=== PATIENT | male | born 1955 ===

== ENCOUNTER 2016-07-16 09:50 | Day surgery (SDC) | payer OTHER ==
[~2016-07-16 09:50] MED LIST: LIDOCAINE HCL 1% MPF SOL ONE; PROPOFOL 500 MG/50 ML EMU IV ONE
[2016-07-16 12:08] VITALS: O2SAT 98
[2016-07-16 12:19] VITALS: BP 147/75; PULSE 72; RESP 18; TEMP 96.6
== END 2016-07-16 12:39 | disposition home or self-care (01) ==
LOC: SURG 09:50
PROVIDERS: ATTEND Surgery
DX: Z12.11 Encounter for screening for malignant neoplasm of colon (principal); D12.0 Benign neoplasm of cecum
CPT/HCPCS: 45385; 82962; 88305; J2001; J2704

== ENCOUNTER 2016-11-21 19:58 | Emergency (ER) | payer OTHER ==
[2016-11-21] MEDS: CEFTRIAXONE 1 GM PDS 1 GM in SODIUM CHLORIDE 0.9% 100 ML 100 ML IV ONE ×2 (20:47→21:21)
[2016-11-21] MEDS ORDERED: SODIUM CHLORIDE 0.9% 1000ML 1,000 ML IV ONE (20:48)
[2016-11-21 20:52] VITALS: RESP 16
[2016-11-21] MEDS ORDERED: SODIUM CHLORIDE 0.9% FLUSH 10 ML SOL IV PRN (20:54)
[2016-11-21] MEDS ORDERED: CEFTRIAXONE 1 GM (PREMIX) 1 GM/50 ML SOL IV ONE ×2 (20:58)
[2016-11-21 21:23] LABS: BASOPHILS % (AUTO) 1 % (0-3); EOSINOPHILS % (AUTO) 1 % (0-9); HEMATOCRIT 35 % (39-53); MEAN CORPUSCULAR HGB CONC 33.5 gm/dl (32.0-36.0); MEAN CORPUSCULAR VOLUME 89 fL (80-100); MONOCYTES % (AUTO) 8.9 % (0-12); NEUTROPHILS % (AUTO) 70.8 % (37-80)
[2016-11-21 21:34] LABS: ALBUMIN 2.4 gm/dl (3.4-5.0); CALCIUM 8.2 mg/dl (8.5-10.1); POTASSIUM 4.1 mMol/L (3.5-5.1)
[2016-11-21 21:36] VITALS: O2SAT 98
[2016-11-21] MEDS ORDERED: SOLUMEDROL 125 MG/2 ML 125 MG/2 ML PDS IV ONE (21:57)
[2016-11-21] MEDS ORDERED: ACETAMINOPHEN 500 MG 500 MG TAB PO ONE (22:22)
[2016-11-21] MEDS ORDERED: ACETAMINOPHEN 500 MG 500 MG TAB ONE (22:23)
[2016-11-21] MEDS ORDERED: SOLUMEDROL 125 MG/2 ML 125 MG/2 ML PDS ONE (22:56)
[2016-11-22 00:47] VITALS: BP 136/79; PULSE 74; TEMP 99.9
== END 2016-11-21 23:41 | disposition home or self-care (01) ==
LOC: ED 19:58
DX: K04.7 Periapical abscess without sinus (principal); J01.00 Acute maxillary sinusitis, unspecified; E86.0 Dehydration
CPT/HCPCS: 99285 ×3; 82962; 85025; 86140; J0696; J2930; 80053

== ENCOUNTER 2018-02-01 11:02 | Day surgery (SDC) | payer OTHER ==
[~2018-02-01 11:02] MED LIST changes: +LIDOCAINE HCL 1% MPF 30 SOL ONE; -LIDOCAINE HCL 1% MPF SOL ONE; -PROPOFOL 500 MG/50 ML EMU IV ONE
[2018-02-01] MEDS ORDERED: MIDAZOLAM 2 MG/2 ML SOL ONE (12:09)
[2018-02-01] MEDS ORDERED: FENTANYL 100MCG/2ML SOL ONE (12:09)
[2018-02-01] MEDS ORDERED: PROPOFOL 500 MG/50 ML EMU IV ONE (12:09)
[2018-02-01 13:47] VITALS: PULSE 56
[2018-02-01 14:22] VITALS: RESP 20; TEMP 96.1; O2SAT 100
[2018-02-01 15:08] VITALS: BP 171/75
== END 2018-02-01 15:45 | disposition home or self-care (01) ==
LOC: SURG 11:02
PROVIDERS: ATTEND Orthopaedic Surgery
DX: G56.21 Lesion of ulnar nerve, right upper limb (principal); G56.01 Carpal tunnel syndrome, right upper limb; E11.9 Type 2 diabetes mellitus without complications
CPT/HCPCS: 82962; J2250; J3010; A6402; J2001; J2704

== ENCOUNTER 2018-04-20 11:33 | Emergency (ER) | payer OTHER ==
[2018-04-20] MEDS ORDERED: ONDANSETRON HCL 4 MG/2 ML SOL ONE (11:51)
[2018-04-20] MEDS ORDERED: ONDANSETRON HCL 4 MG/2 ML SOL IV ONE (11:52)
[2018-04-20] MEDS: SODIUM CHLORIDE 0.9% FLUSH 10 ML SOL IV PRN ×3 (11:54→12:21)
[2018-04-20] MEDS ORDERED: PANTOPRAZOLE SODIUM 40 MG/10 ML PDS IV ONE (12:04)
[2018-04-20] MEDS ORDERED: PROCHLORPERAZINE EDISYLATE 5 MG/ML SOL IV PRN (12:09)
[2018-04-20] MEDS ORDERED: SODIUM CHLORIDE 0.9% 1000ML 1,000 ML IV ONE (12:09)
[2018-04-20] MEDS ORDERED: PANTOPRAZOLE SODIUM 40 MG/10 ML PDS ONE (12:19)
[2018-04-20 12:26] LABS: BASOPHILS % (AUTO) 0 % (0-3); EOSINOPHILS % (AUTO) 1 % (0-9); HEMATOCRIT 36 % (39-53); HEMOGLOBIN 11.7 gm/dl (13.5-17.7); LYMPHOCYTES % (AUTO) 15.3 % (10-50); MEAN CORPUSCULAR HEMOGLOBIN 28.8 pg (27.0-32.0); MEAN CORPUSCULAR VOLUME 90 fL (80-100); MONOCYTES % (AUTO) 4.3 % (0-12)
[2018-04-20 12:39] LABS: ALBUMIN 2.7 gm/dl (3.4-5.0); BILIRUBIN,TOTAL 0.4 mg/dl (0.2-1.0); CALCIUM 8.9 mg/dl (8.5-10.1); CARBON DIOXIDE 25.8 mEq/L (21-32); CREATININE 1.65 mg/dl (0.80-1.30); POTASSIUM 4.1 mMol/L (3.5-5.1); TOTAL PROTEIN 6.8 gm/dl (6.4-8.2)
[2018-04-20 12:40] LABS: INFLUENZA A NEGATIVE (NEGATIVE); INFLUENZA B NEGATIVE (NEGATIVE)
[2018-04-20 12:40] LABS: HEMOGLOBIN A1C 7.1 % (4.8-6.0)
[2018-04-20] MEDS ORDERED: PROCHLORPERAZINE EDISYLATE 5 MG/ML SOL ONE (12:51)
[2018-04-20] MEDS ORDERED: ONDANSETRON HCL 4 MG/2 ML SOL IV PRN (14:11)
[2018-04-20] MEDS ORDERED: DIPHENHYDRAMINE 50 MG/ML SOL IV PRN (14:12)
[2018-04-20] MEDS: SODIUM CHLORIDE 0.9% 1000ML 1,000 ML IV SCH (15:06)
[2018-04-20] MEDS: HUMALOG PEN 100 U/ML SC SCH ×2 (17:33→20:05)
[2018-04-20] MEDS ORDERED: GABAPENTIN 300 MG CAP PO SCH (21:00)
[2018-04-21] MEDS: SODIUM CHLORIDE 0.9% 1000ML 1,000 ML IV SCH (02:04)
[2018-04-21 02:07] VITALS: RESP 16
[2018-04-21 07:26] LABS: ALBUMIN 2.1 gm/dl (3.4-5.0); BILIRUBIN,TOTAL 0.3 mg/dl (0.2-1.0); CREATININE 1.73 mg/dl (0.80-1.30); POTASSIUM 3.9 mMol/L (3.5-5.1); TOTAL PROTEIN 5.5 gm/dl (6.4-8.2)
[2018-04-21 07:27] LABS: BASOPHILS % (AUTO) 1 % (0-3); EOSINOPHILS % (AUTO) 2 % (0-9); HEMATOCRIT 32 % (39-53); HEMOGLOBIN 10.3 gm/dl (13.5-17.7); LYMPHOCYTES % (AUTO) 22.6 % (10-50); MEAN CORPUSCULAR HEMOGLOBIN 28.9 pg (27.0-32.0); MEAN CORPUSCULAR VOLUME 90 fL (80-100); MONOCYTES % (AUTO) 7.2 % (0-12); NEUTROPHILS % (AUTO) 67.8 % (37-80)
[2018-04-21 07:44] VITALS: BP 145/75; PULSE 66; TEMP 98.4; O2SAT 98
[2018-04-21] MEDS: HUMALOG PEN 100 U/ML SC SCH (08:04)
[2018-04-21] MEDS ORDERED: BUPROPION XL 150 MG T24 PO SCH (09:00)
[2018-04-21] MEDS ORDERED: INSULIN GLARGINE, RECOMBINAN 100 U/ML SOL SC SCH (09:00)
[2018-04-21] MEDS ORDERED: ATORVASTATIN 10 MG TAB PO SCH (09:00)
[2018-04-21] MEDS ORDERED: ASPIRIN EC 81 MG PO SCH (09:00)
[2018-04-21] MEDS ORDERED: TAMSULOSIN HYDROCHLORIDE 0.4 MG CAP PO SCH (09:00)
[2018-04-21] MEDS ORDERED: INFLUENZA VIRUS VACCINE 0.5 ML SUS IM ONE (09:43)
[2018-04-21] MEDS ORDERED: PNEUMOC 13-VAL CONJ-DIP CRM/PF 0.5 ML SYRINGE IM ONE (09:43)
== END 2018-04-21 09:37 | disposition home or self-care (01) | DRG 392 ==
LOC: ED 11:33 → ACUTE CARE 13:32 → UNDOADMOB 13:32 → ACUTE CARE 14:00
PROVIDERS: ADMIT Family Medicine; ATTEND Family Medicine
DX: K52.9 Noninfective gastroenteritis and colitis, unspecified (principal); E11.9 Type 2 diabetes mellitus without complications; Z79.4 Long term (current) use of insulin; I10 Essential (primary) hypertension; E86.0 Dehydration
CPT/HCPCS: 36415; 80053; 82962; 83036; 85025; 87804; 90670; 90686; 96365; 96374; 96375; 99284; 99285; J0780; J1815; J1817; J2405; A9270-GY; G0008

== ENCOUNTER 2018-05-10 13:00 | Emergency (ER) | payer OTHER ==
[2018-05-10 13:13] VITALS: RESP 16; TEMP 97.2
[2018-05-10] MEDS ORDERED: SODIUM CHLORIDE 0.9% 1000ML 1,000 ML IV ONE (13:29)
[2018-05-10] MEDS ORDERED: KETOROLAC TROMETHAMINE 30 MG/ML SOL IV ONE (13:30)
[2018-05-10] MEDS ORDERED: KETOROLAC TROMETHAMINE 30 MG/ML SOL ONE (13:52)
[2018-05-10 13:54] LABS: ALBUMIN 2.4 gm/dl (3.4-5.0); BILIRUBIN,TOTAL 0.3 mg/dl (0.2-1.0); CALCIUM 8.5 mg/dl (8.5-10.1); CREATININE 1.81 mg/dl (0.80-1.30); POTASSIUM 5.1 mMol/L (3.5-5.1); TOTAL PROTEIN 6.1 gm/dl (6.4-8.2)
[2018-05-10 13:56] LABS: BASOPHILS % (AUTO) 1 % (0-3); EOSINOPHILS % (AUTO) 2 % (0-9); HEMATOCRIT 34 % (39-53); HEMOGLOBIN 11.3 gm/dl (13.5-17.7); LACTIC ACID 1.4 mMol/L (0.0-2.0); LYMPHOCYTES % (AUTO) 21.2 % (10-50); MEAN CORPUSCULAR HEMOGLOBIN 29.9 pg (27.0-32.0); MEAN CORPUSCULAR HGB CONC 32.9 gm/dl (32.0-36.0); MEAN CORPUSCULAR VOLUME 91 fL (80-100); MONOCYTES % (AUTO) 4.9 % (0-12); NEUTROPHILS % (AUTO) 71.1 % (37-80)
[2018-05-10 15:47] LABS: APPEARANCE,URINE Clear; BILIRUBIN,URINE NEGATIVE (NEGATIVE); COLOR,URINE Yellow; GLUCOSE, URINE (UA) TRACE (NEGATIVE); KETONES,URINE NEGATIVE (NEGATIVE); LEUKOCYTE ESTERASE ,URINE NEGATIVE (NEGATIVE); NITRATE,URINE NEGATIVE (NEGATIVE); OCCULT BLOOD,URINE 2+ (NEG-TRACE); PH,URINE 5.5; UROBILINOGEN,URINE 0.2 (0.2-1.0 EU)
[2018-05-10 16:01] LABS: BACTERIA NEGATIVE (< 1+); CRYSTALS NEGATIVE (0-3 AVE/HPF); WBC,URINE 0-2 (0-5AV/HPF)
[2018-05-10 16:53] VITALS: BP 176/84; PULSE 60; O2SAT 99
== END 2018-05-10 16:44 | disposition home or self-care (01) | DRG 392 ==
LOC: ED 13:00
DX: R10.9 Unspecified abdominal pain (principal); E11.9 Type 2 diabetes mellitus without complications
CPT/HCPCS: 36415; 74176; 80053; 81001; 85025; 96365; 96374; 99283; 99284; 99285; J1885